=== PATIENT | female | born 1935 | race Caucasian/White ===

== ENCOUNTER 2016-10-12 17:23 | Emergency (ER) | payer MEDICARE, BC ==
[~2016-10-12] VITALS: Ht 157.5 cm; Wt 72.7 kg
[2016-10-12 17:26] VITALS: TEMP 97.8
[2016-10-12] MEDS ORDERED: BENICAR 20MG TA20 MG PO (18:21)
[2016-10-12] MEDS ORDERED: NORVASC 5MG5 MG/TAB PO (18:22)
[2016-10-12] MEDS ORDERED: PLAVIX 75MG TAB75 MG PO (18:22)
[2016-10-12] MEDS ORDERED: NAMENDA 10MG TA10 MG PO (18:23)
[2016-10-12] MEDS ORDERED: ZOCOR 40MG40 MG PO (18:24)
[2016-10-12] MEDS ORDERED: BYSTOLIC20 MG PO (18:25)
[2016-10-12] MEDS ORDERED: RAZADYNE ER24 MG PO (18:25)
[2016-10-12] MEDS ORDERED: TYLENOL 325MG325 MG PO (18:26)
[2016-10-12 18:54] VITALS: BP 169/79; PULSE 62
== END 2016-10-12 18:55 | disposition home or self-care (01) ==
LOC: COL.ER 17:23
DX: M25.562 Pain in left knee (principal); I10 Essential (primary) hypertension; M25.462 Effusion, left knee
CPT/HCPCS: L1830